=== PATIENT | male | born 1990 | race Caucasian/White ===

== ENCOUNTER 2025-01-15 14:25 | Emergency (ER) | payer OTHER, SELFPAY ==
[2025-01-15] VITALS (18 sets, daily range): BP systolic 109–133; BP diastolic 65–92; PULSE 72–110; RESP 16–20; TEMP 36.3–36.8; O2SAT 96–100
--- NOTE | ~2025-01-15 | CT_ITS ---
CT abdomen pelvis wo con Ordering provider: Joan Landry PA-C History: 34 years Male with . Left flank pain, radiates to LLQ . Comparison: None. Technique: CT abdomen and pelvis without IV and without oral contrast. Automated exposure control and iterative reconstruction technique were employed. The dose-length product was 210.68 mGy-cm. Findings: VISUALIZED LOWER CHEST: Dependent atelectatic changes. UPPER ABDOMINAL ORGANS: Liver: Normal. Gallbladder: Normal. Spleen: Normal. Stomach/duodenum: Normal. Pancreas: Normal. Adrenals: Normal. Kidneys: Normal. PELVIC ORGANS: The bladder is normal. BOWEL AND MESENTERY: Colon: No evidence of diverticulitis.. Normal appendix. Small Bowel: Normal. No obstruction. Peritoneum/mesentery: No free air or free fluid. No mesenteric lymphadenopathy. RETROPERITONEUM: Normal aorta. No retroperitoneal lymphadenopathy. MUSCULOSKELETAL: Superficial soft tissues: The superficial soft tissues are normal. Bones: Normal spine. IMPRESSION: 1. No evidence of appendicitis, diverticulitis or intestinal obstruction. 2. No definite kidney stones. Reviewed, dictated and finalized at location A.
--- NOTE | 2025-01-15 16:07 | ED.NAVMDI ---
HPI - Nausea/Vomiting/Diarrhea General Chief complaint: Nausea/Vomiting/Diarrhea <Joan Landry PA-C - Last Filed: 01/15/25 16:10> Stated complaint: N/V/D-abdominal /back pain <Joan Landry PA-C - Last Filed: 01/15/25 16:10> Time Seen by Provider: 01/15/25 16:16 <Joan Landry PA-C - Last Filed: 01/15/25 16:10> Focused HPI: 34-year-old male presents emergency department with mother at bedside for left-sided flank pain that started this morning. Patient states the pain is now radiating to the left lower quadrant. Pain waxes and wanes in nature. He has no history of similar presentation, history of kidney stones. Denies dysuria or hematuria. Has had some nausea, vomiting and diarrhea. No known fevers. GENERAL: Well-appearing, well-nourished, and in no acute distress. HEAD: Normocephalic, atraumatic. CHEST: Clear to auscultation. ?No respiratory distress. ABD: Tenderness to the left CVA region left lower quadrant with guarding HEART: Regular rate and rhythm.? NEURO: ?Alert and oriented x3. Patient screened in triage and initial orders placed.? ?Additional care and disposition to be based upon?diagnostic testing and treatment. <Joan Landry PA-C - Last Filed: 01/15/25 16:10> Source: patient <Dakota Carlos MD - Last Filed: 01/15/25 18:51> Mode of arrival: ambulatory <Dakota Carlos MD - Last Filed: 01/15/25 18:51> Limitations: no limitations <Dakota Carlos MD - Last Filed: 01/15/25 18:51> History of Present Illness HPI Narrative: 34-year-old otherwise healthy here with the complaints of nausea, vomiting, generalized body aches since this morning. Patient states his nausea and vomiting subsided however has severe pain all over the body. No fever or chills. <Dakota Carlos MD - Last Filed: 01/15/25 18:51> MD elicited complaint: nausea and vomiting <Dakota Carlos MD - Last Filed: 01/15/25 18:51> Onset (ago): day(s) (1) <Dakota Carlos MD - Last Filed: 01/15/25 18:51> Associated abdominal pain: No <Dakota Carlos MD - Last Filed: 01/15/25 18:51> Pain consistency: constant <Dakota Carlos MD - Last Filed: 01/15/25 18:51> Severity: moderate <Dakota Carlos MD - Last Filed: 01/15/25 18:51> Quality: aching <Dakota Carlos MD - Last Filed: 01/15/25 18:51> Relieving factors: none <Dakota Carlos MD - Last Filed: 01/15/25 18:51> Related Data Allergies/Adverse reactions: Allergies Allergy/AdvReac Type Severity Reaction Status Date / Time No Known Allergies Allergy Verified 01/15/25 14:26 <Joan Landry PA-C - Last Filed: 01/15/25 16:10> Review of Systems Review of Systems: All systems reviewed & are unremarkable except as noted in HPI and below <Dakota Carlos MD - Last Filed: 01/15/25 18:51> Constitutional: Constitutional: Reports no additional constitutional complaints <Dakota Carlos MD - Last Filed: 01/15/25 18:51> Eyes: Eyes: Reports no additional eye complaints <Dakota Carlos MD - Last Filed: 01/15/25 18:51> ENT: Reports system reviewed and no additional complaints, except as documented <Dakota Carlos MD - Last Filed: 01/15/25 18:51> Cardiovascular: Cardiovascular: Reports no additional cardiovascular complaints <Dakota Carlos MD - Last Filed: 01/15/25 18:51> Respiratory: Respiratory: Reports no additional respiratory complaints <Dakota Carlos MD - Last Filed: 01/15/25 18:51> Gastrointestinal: Gastrointestinal: Reports as per HPI <Dakota Carlos MD - Last Filed: 01/15/25 18:51> Musculoskeletal: Musculoskeletal: Reports as per HPI <Dakota Carlos MD - Last Filed: 01/15/25 18:51> Integumentary/Breasts: Skin/Breast: Reports system reviewed and no additional complaints, except as docu <Dakota Carlos MD - Last Filed: 01/15/25 18:51> Neurologic: Reports system reviewed and no additional complaints, except as documented <Dakota Carlos MD - Last Filed: 01/15/25 18:51> Psychiatric: Psychiatric: Reports no additional psychiatric complaints <Dakota Cralos MD - Last Filed: 01/15/25 18:51> Exam Narrative: GENERAL: Well-appearing, well-nourished, patient rocking on the bed with pain all over the body HEAD: Normocephalic, atraumatic. EYES: PERRLA and EOMI. ENT: Mucous membranes moist. NECK: Supple. CHEST: Clear to auscultation. No respiratory distress. HEART: Regular rate and rhythm. No murmur heard. Normal peripheral pulses. ABDOMEN: Soft, nontender, nondistended, normal active bowel sounds. EXTREMITIES: Normal range of motion. No edema. SKIN: Warm, dry, no rash. NEURO: No focal deficits. Alert and oriented x3. PSYCH: Normal mood and affect. <Dakota Carlos MD - Last Filed: 01/15/25 18:51> Course Course Emergency Course: Patient feeling much better after IV fluids and pain medication. Did inform him and his mother about the lab work and CT findings. Advised him to drink more fluids take pain medication as prescribed. <Dakota Carlos MD - Last Filed: 01/15/25 18:51> Reevaluation(s) Time: 17:48 <Dakota Carlos MD - Last Filed: 01/15/25 18:51> Reevaluation #2: Patient feeling much better. I did inform him about his lab work awaiting for CT <Dakota Carlos MD - Last Filed: 01/15/25 18:51> Vital Signs Vital signs: Vital Signs Temperature 36.3 C L 01/15/25 14:42 Pulse Rate 102 H 01/15/25 14:42 Respiratory Rate 18 01/15/25 14:42 Blood Pressure 133/65 01/15/25 14:42 Pulse Oximetry 100 01/15/25 14:42 Temperature 36.3 C L 01/15/25 14:42 Pulse Rate 110 H 01/15/25 18:00 Respiratory Rate 16 01/15/25 18:00 Blood Pressure 127/77 01/15/25 18:00 Pulse Oximetry 98 01/15/25 18:00 <Joan Landry PA-C - Last Filed: 01/15/25 16:10> Vital Signs Temperature 36.3 C L 01/15/25 14:42 Pulse Rate 102 H 01/15/25 14:42 Respiratory Rate 18 01/15/25 14:42 Blood Pressure 133/65 01/15/25 14:42 Pulse Oximetry 100 01/15/25 14:42 Temperature 36.3 C L 01/15/25 14:42 Pulse Rate 110 H 01/15/25 18:00 Respiratory Rate 16 01/15/25 18:00 Blood Pressure 127/77 01/15/25 18:00 Pulse Oximetry 98 01/15/25 18:00 <Dakota Carlos MD - Last Filed: 01/15/25 18:51> MDM - Nausea/Vomiting/Diarrhea Lab Data Result diagrams: 01/15/25 16:47 01/15/25 16:47 <Joan Landry PA-C - Last Filed: 01/15/25 16:10> Labs: Lab Results 01/15/25 Range/Units 16:47 WBC 17.4 H (4.5-10.0) K/mm3 RBC 5.74 (4.6-6.20) M/mm3 Hgb 17.5 (14.0-18.0) g/dL Hct 49.2 (42.0-52.0) % MCV 85.7 (80-100) fl MCH 30.5 (26-34) pg MCHC 35.6 (32-36) g/dl RDW 12.2 (11.5-14.5) % Plt Count 277 (150-375) k/mm3 MPV 8.7 (7.4-10.4) fl Immature Gran % (Auto) Not Reportable Neut % (Auto) Not Reportable Lymph % (Auto) Not Reportable Gregory % (Auto) Not Reportable Eos % (Auto) Not Reportable Baso % (Auto) Not Reportable Lymph # (Auto) Not Reportable Gregory # (Auto) Not Reportable Eos # (Auto) Not Reportable Baso # (Auto) Not Reportable Abs Immat Gran (auto) Not Reportable Absolute Neuts (auto) Not Reportable Absolute Nucleated RBC Not Reportable Total Counted 100 Neutrophils % (Manual) 92 H (46-73) % Band Neutrophils % 4 (0-6) % Lymphocytes % (Manual) 3.0 L (18-44) % Monocytes % (Manual) 1 L (3-9) % Nucleated RBC % Not Reportable Abs Neuts (Manual) 16.70 H (1.3-6.7) K/mm3 Abs Lymphs (Manual) 0.52 L (1.1-4.5) K/mm3 Abs Monocytes (Manual) 0.17 (0.1-0.90) K/mm3 Platelet Estimate Adequate (Adequate) Clumped Platelets Present Schistocytes None seen Sodium 141 (137-145) mmol/L Potassium 3.8 (3.4-5.0) mmol/L Chloride 104 (98-107) mmol/L Carbon Dioxide 18 L (22-30) mmol/L Anion Gap 19 H (4-12) mmol/L BUN 16 (9-20) mg/dL Creatinine 0.82 (0.7-1.3) mg/dL Estim Creat Clear Calc 102 ml/min Estimated GFR > 60 (59 - ) Glucose 125 H (65-110) mg/dL Calcium 10.0 (8.4-10.2) mg/dL Total Bilirubin 1.3 (0.2-1.3) mg/dL AST 41 (17-59) U/L ALT 56 H (6-50) U/L Alkaline Phosphatase 76 (38-126) U/L Total Protein 9.0 H (6.3-8.2) g/dL Albumin 5.2 H (3.5-5.1) g/dL Lipase 102 (23-300) U/L <Joan Landry PA-C - Last Filed: 01/15/25 16:10> Lab Results 01/15/25 Range/Units 16:47 WBC 17.4 H (4.5-10.0) K/mm3 RBC 5.74 (4.6-6.20) M/mm3 Hgb 17.5 (14.0-18.0) g/dL Hct 49.2 (42.0-52.0) % MCV 85.7 (80-100) fl MCH 30.5 (26-34) pg MCHC 35.6 (32-36) g/dl RDW 12.2 (11.5-14.5) % Plt Count 277 (150-375) k/mm3 MPV 8.7 (7.4-10.4) fl Immature Gran % (Auto) Not Reportable Neut % (Auto) Not Reportable Lymph % (Auto) Not Reportable Gregory % (Auto) Not Reportable Eos % (Auto) Not Reportable Baso % (Auto) Not Reportable Lymph # (Auto) Not Reportable Gregory # (Auto) Not Reportable Eos # (Auto) Not Reportable Baso # (Auto) Not Reportable Abs Immat Gran (auto) Not Reportable Absolute Neuts (auto) Not Reportable Absolute Nucleated RBC Not Reportable Total Counted 100 Neutrophils % (Manual) 92 H (46-73) % Band Neutrophils % 4 (0-6) % Lymphocytes % (Manual) 3.0 L (18-44) % Monocytes % (Manual) 1 L (3-9) % Nucleated RBC % Not Reportable Abs Neuts (Manual) 16.70 H (1.3-6.7) K/mm3 Abs Lymphs (Manual) 0.52 L (1.1-4.5) K/mm3 Abs Monocytes (Manual) 0.17 (0.1-0.90) K/mm3 Platelet Estimate Adequate (Adequate) Clumped Platelets Present Schistocytes None seen Sodium 141 (137-145) mmol/L Potassium 3.8 (3.4-5.0) mmol/L Chloride 104 (98-107) mmol/L Carbon Dioxide 18 L (22-30) mmol/L Anion Gap 19 H (4-12) mmol/L BUN 16 (9-20) mg/dL Creatinine 0.82 (0.7-1.3) mg/dL Estim Creat Clear Calc 102 ml/min Estimated GFR > 60 (59 - ) Glucose 125 H (65-110) mg/dL Calcium 10.0 (8.4-10.2) mg/dL Total Bilirubin 1.3 (0.2-1.3) mg/dL AST 41 (17-59) U/L ALT 56 H (6-50) U/L Alkaline Phosphatase 76 (38-126) U/L Total Protein 9.0 H (6.3-8.2) g/dL Albumin 5.2 H (3.5-5.1) g/dL Lipase 102 (23-300) U/L <Dakota Carlos MD - Last Filed: 01/15/25 18:51> Imaging Data Radiologist's impression: ITS Impressions Abdomen/Pelvis CT 01/15/25 17:48 IMPRESSION: 1. No evidence of appendicitis, diverticulitis or intestinal obstruction. 2. No definite kidney stones. <Dakota Carlos MD - Last Filed: 01/15/25 18:51> Discharge Plan Discharge Clinical Impression: Dehydration, Gastroenteritis <Joan Landry PA-C - Last Filed: 01/15/25 16:10> Patient Disposition: Home, Self-Care <Joan Landry PA-C - Last Filed: 01/15/25 16:10> Condition: Stable <Joan Landry PA-C - Last Filed: 01/15/25 16:10> Instructions: Dehydration (ED), Acute Nausea and Vomiting (ED), Viral Syndrome (ED) <Joan Landry PA-C - Last Filed: 01/15/25 16:10> Additional Instructions: Drink more fluids as tolerated , Tylenol ofr Ibuprofen for pain or fever. 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
[2025-01-15 17:00] LABS: Hematocrit 49.2 % (42.0-52.0); Hemoglobin 17.5 g/dL (14.0-18.0); Mean Corpuscular HGB Conc 35.6 g/dl (32-36); Mean Corpuscular Hemoglobin 30.5 pg (26-34); Mean Corpuscular Volume 85.7 fl (80-100); Mean Platelet Volume 8.7 fl (7.4-10.4); Platelet Count Result 277 k/mm3 (150-375); Red Blood Count 5.74 M/mm3 (4.6-6.20); Red Cell Distribution Width 12.2 % (11.5-14.5); White Blood Count 17.4 K/mm3 (4.5-10.0)
[2025-01-15] MEDS: MORPHINE SULFATE (*CRX) 4 MG/ML INJ IV PUSH (17:01)
[2025-01-15] MEDS: ONDANSETRON INJ 4 MG/2 ML VIAL IV PUSH (17:01)
[2025-01-15] MEDS: KETOROLAC 30 MG/ML VIAL (*BKC) IV PUSH (17:01)
[2025-01-15] MEDS: SODIUM CHLORIDE 0.9% IV 1,000 ML 999 ML IV CONT ×2 (17:02)
[2025-01-15 17:07] LABS: Alanine Aminotransferase 56 U/L (6-50); Albumin Level 5.2 g/dL (3.5-5.1); Alkaline Phosphatase 76 U/L (38-126); Anion Gap 19 mmol/L (4-12); Aspartate Amino Transferase 41 U/L (17-59); Bilirubin,Total 1.3 mg/dL (0.2-1.3); Blood Urea Nitrogen 16 mg/dL (9-20); Carbon Dioxide 18 mmol/L (22-30); Chloride 104 mmol/L (98-107); Estimated CRCL calculation 102 ml/min; Estimated Glomerular Filt Rate > 60; Glucose 125 mg/dL (65-110); Lipase 102 U/L (23-300); Potassium 3.8 mmol/L (3.4-5.0); Sodium 141 mmol/L (137-145)
[2025-01-15 17:39] LABS: Band Neutrophils Percent 4 % (0-6); Lymphocytes Absolute Manual 0.52 K/mm3 (1.1-4.5); Monocytes Absolute Manual 0.17 K/mm3 (0.1-0.90); Monocytes Percent Manual 1 % (3-9); Neutrophils Percent Manual 92 % (46-73); Platelet Clumps Present; Platelet Estimate Adequate (Adequate); Schistocytes None Seen; Total Cells Counted 100
--- NOTE | 2025-01-15 17:55 | PC.NURSE ---
pt states he is unable to get up to urinate. aware.
[2025-01-15] MEDS: SODIUM CHLORIDE 0.9% IV 1,000 ML 999 ML (17:59)
[2025-01-15 19:36] LABS: Bacteria Urine None Seen /hpf; Non Pathogenic Casts 0-2; RBC Urine 0-2 /hpf (0-2); Squamous Epithelial Cell Urine None Seen /hpf (Few); WBC Urine 0-5 /hpf (0-3)
[2025-01-15 19:59] LABS: Appearance Urine Clear (Clear); Color Urine Yellow (Yellow)
[2025-01-15 20:00] LABS: Glucose Urine UA Negative (Negative); Ketones Urine 3+ mg/dL (Negative); Protein Urine Negative (Negative)
[2025-01-15 20:01] LABS: Bilirubin Urine Negative (Negative); Blood Urine Negative (Negative); Nitrate Urine Negative (Negative)
[2025-01-15 20:02] LABS: Add Urine Microscopic? NO; Leukocyte Esterase Ur Negative LEU/UL (Negative); Urobilinogen Urine 0.2 mg/dL (<2.0)
== END 2025-01-15 20:24 | disposition home or self-care (01) ==
PROVIDERS: Student in an Organized Health Care Education/Training Program; Emergency Provider Family Medicine
DX: E86.0 Dehydration (principal); K52.9 Noninfective gastroenteritis and colitis, unspecified
CPT/HCPCS: 36415; 74176; 80053; 81003; 83690; 85025; 96361; 96374; 96375; 99284; J1885; J2270; J2405; J7030